=== PATIENT | male | born 1985 | race Caucasian/White ===

== ENCOUNTER 2020-12-30 01:45 | Emergency (ER) | payer OTHER ==
[~2020-12-30] VITALS: Ht 175.3 cm; Wt 96.6 kg
[2020-12-30 01:53] VITALS: BP 160/94
--- NOTE | 2020-12-30 02:10 | NUR ---
PT AMBULATED TO BATHROOM FROM TRIAGE.
--- NOTE | 2020-12-30 02:11 | NUR ---
PT AMBULATES TO LOBBY WITH STEADY GATE.
--- NOTE | 2020-12-30 02:15 | NUR ---
PT AMBULATED TO .
--- NOTE | 2020-12-30 03:05 | NUR ---
CALLED PT, WAS IN RESTROOM STATED HE WOULD COME OUT SOON.
--- NOTE | 2020-12-30 03:07 | NUR ---
PT CALLED IN LOBBY AND OUTSIDE WITH NO ANSWER.
--- NOTE | 2020-12-30 03:15 | NUR ---
CALLED PATIENT BACK, STILL IN RESTROOM. STATED HE IS HAVING A BM.
--- NOTE | 2020-12-30 03:30 | NUR ---
CALLED PT BACK, REMAINED IN RESTROOM SINCE FIRST CALL.
--- NOTE | 2020-12-30 03:39 | NUR ---
CALLED PT BACK, REMAINS IN RR. SECURITY CALLED.
--- NOTE | 2020-12-30 04:03 | NUR ---
PT DOES NOT COME OUT OF RR, STATES HE STILL WANTS TO BE SEEN.
[2020-12-30 04:18] VITALS: BP 160/94
--- NOTE | 2020-12-30 04:18 | NUR ---
PATIENT LEFT WITHOUT BEING SEEN BY DR. ALEMAN. NO FURTHER CARE PROVIDED FOR PATIENT.
== END 2020-12-30 04:18 | disposition left against medical advice (07) ==
LOC: MED 01:45
DX: M79.604 Pain in right leg (principal); Z53.21 Procedure and treatment not carried out due to patient leaving prior to being seen by health care provider; V03.90XA Pedestrian on foot injured in collision with car, pick-up truck or van, unspecified whether traffic or nontraffic accident, initial encounter; Y93.89 Activity, other specified; Y92.89 Other specified places as the place of occurrence of the external cause; Y99.8 Other external cause status

== ENCOUNTER 2021-01-04 01:30 | Emergency (ER) | payer OTHER ==
[~2021-01-04] VITALS: Ht 175.3 cm; Wt 90.7 kg
--- NOTE | 2021-01-04 01:40 | NUR ---
CALLED TO TRIAGE, NO ANSWER. PT IN BATHROOM IN LOBBY AND WON'T COME OUT
--- NOTE | 2021-01-04 01:55 | NUR ---
PT REMAINS IN BATHROOM IN LOBBY AND WILL NOT COME OUT. VERBALLY RESPONDS BUT WILL NOT COME OUT
--- NOTE | 2021-01-04 02:07 | NUR ---
TO TRIAGE WITH C/O RIGHT LEG PAIN
[2021-01-04 02:10] VITALS: BP 146/86
[2021-01-04] MEDS ORDERED: MORPHINE SULFATE 2 MG/ML SYR IVP ONE (02:10)
[2021-01-04] MEDS ORDERED: ONDANSETRON 4 MG/2 ML VIAL IVP ONE ×2 (02:10→04:30)
[2021-01-04] MEDS ORDERED: NACL 0.9% 1,000 ML IV SCH (02:10)
--- NOTE | 2021-01-04 02:19 | NUR ---
pt amb to bed 7
[2021-01-04] MEDS ORDERED: KETOROLAC 30 MG/ML VIAL IVP ONE (02:45)
[2021-01-04] MEDS ORDERED: VANCOMYCIN 1,000 MG in DEXTROSE 5% 250 ML IV ONE (02:45)
[2021-01-04] MEDS ORDERED: VANCOMYCIN 1,000 MG VIAL ONE (02:59)
[2021-01-04 03:01] LABS: BASOPHILS # (AUTO) 0.1 K/uL (0.00-0.22); BASOPHILS % (AUTO) 0.8 % (0.0-2.0); EOSINOPHILS # (AUTO) 0.7 K/uL (0-0.4); EOSINOPHILS % (AUTO) 7.7 % (0.0-4.0); HEMATOCRIT 32.3 % (36-52); HEMOGLOBIN 10.9 g/dL (12.0-18.0); LYMPHOCYTES # (AUTO) 1.9 K/uL (2.0-11.5); LYMPHOCYTES % (AUTO) 22.2 % (20.5-51.1); MEAN CORPUSCULAR HEMOGLOBIN 30 pg (27-31); MEAN CORPUSCULAR HGB CONC 34 g/dL (33-37); MEAN CORPUSCULAR VOLUME 89.2 fL (80-94); MONOCYTES # (AUTO) 0.7 K/uL (0.8-1.0); MONOCYTES % (AUTO) 8.2 % (1.7-9.3); NEUTROPHILS # (AUTO) 5.3 K/uL (1.8-7.7); NEUTROPHILS % (AUTO) 61.1 % (42.2-75.2); PLATELET COUNT (AUTO) 275 K/uL (140-450); RED BLOOD CELL COUNT(AUTO) 3.62 MIL/uL (4.20-6.10); RED CELL DISTRIBUTION WIDTH 12.6 % (11.6-13.7); WHITE BLOOD COUNT (AUTO) 8.7 K/uL (4.8-10.8)
--- NOTE | 2021-01-04 03:03 | NUR ---
US AT BEDSIDE.
--- NOTE | 2021-01-04 03:03 | NUR ---
Rosalina alvarez in ED - 01/04/21 at 0303 by WYATT Ultrasound at bedside.
[2021-01-04 03:19] LABS: ALBUMIN 3.4 g/dL (3.4-5.0); ANION GAP 11.1 (8-16); CARBON DIOXIDE 27.6 mmol/L (21-32); CREATININE 0.9 mg/dL (0.6-1.3); POTASSIUM 3.7 mmol/L (3.5-5.1); TOTAL BILIRUBIN 0.5 mg/dL (0.0-1.0)
--- NOTE | 2021-01-04 03:43 | NUR ---
X-Ray at bedside.
--- NOTE | 2021-01-04 04:17 | NUR ---
Patient appears to be resting comfortably in bed. Vital Signs within normal limits. Respirations even and unlabored. BOTH SIDE RAILS UP AND BED AT LOWEST POSTION.
[2021-01-04] MEDS ORDERED: MORPHINE SULFATE 10 MG/ML VIAL IVP ONE (04:30)
[2021-01-04] MEDS ORDERED: IBUP-2218 PO (04:33)
[2021-01-04] MEDS ORDERED: CEPH-588 PO (04:33)
--- NOTE | 2021-01-04 05:08 | NUR ---
PT ASKED FOR A URINAL, NO C/O AT THIS TIME, PT STATES HE JUST WANTS TO SLEEP.
--- NOTE | 2021-01-04 06:10 | NUR ---
Dr. Dukes examining patient.
[2021-01-04 06:36] VITALS: BP 134/87
--- NOTE | 2021-01-04 06:53 | NUR ---
CALLED ASHOK FOR PT TO BE TAKEN TO [facility] [place] PT THEN CHANGED HIS MIND.
--- NOTE | 2021-01-04 07:25 | NUR ---
NO ANSWER. PT IN BATHROOM IN LOBBY AND WON'T COME OUT
--- NOTE | 2021-01-04 07:59 | NUR ---
[facility] security called.
--- NOTE | 2021-01-04 08:07 | NUR ---
pt came out of bathroom, asked to have a tab called for him. [employer] called eat 25min. bag of food given to pt.
[2021-01-05] MEDS ORDERED: MELO-174 PO (03:31)
== END 2021-01-04 06:35 | disposition home or self-care (01) ==
LOC: MED 01:30
DX: S90.121A Contusion of right lesser toe(s) without damage to nail, initial encounter (principal); X58.XXXA Exposure to other specified factors, initial encounter; Y93.89 Activity, other specified; Y92.89 Other specified places as the place of occurrence of the external cause; Y99.8 Other external cause status
CPT/HCPCS: 36415; 73630; 80053; 83605; 85025; 87040; 93005; 93971; 96365; 96375; 99285; J1885; J3370; Q0092

== ENCOUNTER 2021-01-05 03:03 | Emergency (ER) | payer OTHER ==
[~2021-01-05] VITALS: Ht 172.7 cm; Wt 95.3 kg
[~2021-01-05 03:03] MED LIST: CEPH-588 PO; IBUP-2218 PO
[2021-01-05 03:12] VITALS: BP 150/92
[2021-01-05] MEDS ORDERED: IBUPROFEN 800 MG TAB PO ONE (03:20)
--- NOTE | 2021-01-05 03:20 | NUR ---
patient wheelchair in the lobby
--- NOTE | 2021-01-05 03:28 | NUR ---
patient asked to speak with ERMD for further questions. ERMD made aware
--- NOTE | 2021-01-05 03:28 | NUR ---
medicated patient per ERMD orders.
[2021-01-05] MEDS ORDERED: MELO-174 PO (03:31)
[2021-01-05 03:37] VITALS: BP 150/92
--- NOTE | 2021-01-05 03:37 | NUR ---
Patient discharged with v/s stable. Written and verbal after care instructions given and explained. Patient verbalized understanding. Wheel Chair Assisted with by nurse. All questions addressed prior to discharge. Advised to follow up with PMD. However, patient refused discharged paperwork and refused to sign. ERMD and bellows charger assembler made aware.
== END 2021-01-05 03:37 | disposition home or self-care (01) ==
LOC: MED 03:03
DX: M79.604 Pain in right leg (principal); Z79.899 Other long term (current) drug therapy
CPT/HCPCS: 99282

== ENCOUNTER 2021-05-21 16:37 | Emergency (ER) | payer OTHER ==
[~2021-05-21] VITALS: Ht 172.7 cm; Wt 97.5 kg
[~2021-05-21 16:37] MED LIST changes: +MELO-174 PO
--- NOTE | 2021-05-21 16:39 | NUR ---
ALS BIB to bed 3.
[2021-05-21 16:42] VITALS: BP 146/87
--- NOTE | 2021-05-21 17:30 | NUR ---
DOCTOR BARRERA AT BEDSIDE
[2021-05-21 18:27] VITALS: BP 146/87
== END 2021-05-21 18:27 | disposition home or self-care (01) ==
LOC: MED 16:37
DX: Z72.820 Sleep deprivation (principal); Z79.1 Long term (current) use of non-steroidal anti-inflammatories (NSAID); Z79.2 Long term (current) use of antibiotics
CPT/HCPCS: 99283

== ENCOUNTER 2022-03-07 12:35 | Emergency (ER) | payer MEDICAID, OTHER ==
[~2022-03-07] VITALS: Ht 165.1 cm; Wt 68.0 kg
[2022-03-07 12:37] VITALS: BP 144/102
--- NOTE | 2022-03-07 13:56 | NUR ---
refusing bloodwork at this time
--- NOTE | 2022-03-07 14:17 | NUR ---
PT REFUSING BLOODWORK
--- NOTE | 2022-03-07 14:17 | NUR ---
pt falling over chair to left side. pt repositioned and states he would like to be discharged. made him aware his results have not come back yet, requesting to leave ama
--- NOTE | 2022-03-07 14:18 | NUR ---
AMBULATED TO LOBBY WITH CANE
[2022-03-07] MEDS ORDERED: ACET-10509 PO (16:21)
--- NOTE | 2022-03-07 16:25 | NUR ---
PT REFUSED TO SIGN DC PAPER. PT STATES HE "DONT WANT ANY PAPERS FROM YOU GUYS". PT NOTIFIED OF PRESCRIPTIONS SENT TO PHARMACY. NO IV PLACED ON PATIENT. PT REFUSED DC VITALS. PT IS AMBULATORY AND ALERT UPON DC
== END 2022-03-07 16:25 | disposition home or self-care (01) ==
LOC: MED 12:35
DX: R07.9 Chest pain, unspecified (principal); R51.9 Headache, unspecified; F15.90 Other stimulant use, unspecified, uncomplicated; Z98.890 Other specified postprocedural states
CPT/HCPCS: 70450; 71045; 99284

== ENCOUNTER 2022-12-23 20:39 | Emergency (ER) | payer MEDICAID ==
[~2022-12-23] VITALS: Ht 170.2 cm; Wt 72.6 kg
[2022-12-23 20:39] VITALS: BP 126/82; PULSE 80; RESP 17; TEMP 97.8; O2SAT 100
[~2022-12-23 20:39] MED LIST changes: +ACET-10509 PO
[2022-12-23 22:00] VITALS: BP 126/82; PULSE 80; RESP 17; TEMP 97.8; O2SAT 100
== END 2022-12-23 22:00 | disposition left against medical advice (07) ==
LOC: MED 20:39
DX: R10.84 Generalized abdominal pain (principal); Z53.21 Procedure and treatment not carried out due to patient leaving prior to being seen by health care provider
CPT/HCPCS: 99281

== ENCOUNTER 2023-01-15 18:34 | Emergency (ER) | payer MEDICAID ==
[~2023-01-15] VITALS: Ht 175.3 cm; Wt 68.0 kg
[2023-01-15 18:39] VITALS: BP 132/75; PULSE 69; RESP 16; TEMP 98.2; O2SAT 98
[2023-01-15] MEDS ORDERED: ONDANSETRON 4 MG ODT PO ONE (18:55)
[2023-01-15] MEDS ORDERED: KETOROLAC 30 MG/ML VIAL IM ONE (18:55)
[2023-01-15] MEDS ORDERED: ACETAMINOPHEN 325 MG TAB PO ONE (18:55)
[2023-01-15 20:47] LABS: BASOPHILS % (AUTO) 0.6 % (0.0-2.0); EOSINOPHILS # (AUTO) 0.2 K/uL (0-0.4); EOSINOPHILS % (AUTO) 2.9 % (0.0-4.0); HEMOGLOBIN 11.7 g/dL (12.0-18.0); LYMPHOCYTES # (AUTO) 1.9 K/uL (2.0-11.5); LYMPHOCYTES % (AUTO) 34.8 % (20.5-51.1); MEAN CORPUSCULAR HEMOGLOBIN 29 pg (27-31); MEAN CORPUSCULAR HGB CONC 33 g/dL (33-37); MEAN CORPUSCULAR VOLUME 89.1 fL (80-94); MONOCYTES # (AUTO) 0.4 K/uL (0.8-1.0); MONOCYTES % (AUTO) 6.5 % (1.7-9.3); NEUTROPHILS # (AUTO) 3.1 K/uL (1.8-7.7); NEUTROPHILS % (AUTO) 55.2 % (42.2-75.2); PLATELET COUNT (AUTO) 263 K/uL (140-450); RED BLOOD CELL COUNT(AUTO) 4.04 MIL/uL (4.20-6.10); RED CELL DISTRIBUTION WIDTH 13.1 % (11.6-13.7); WHITE BLOOD COUNT (AUTO) 5.5 K/uL (4.8-10.8)
[2023-01-15 21:10] LABS: BILIRUBIN,URINE NEGATIVE (NEGATIVE); BLOOD, URINE NEGATIVE (NEGATIVE); COLOR,URINE YELLOW (YELLOW); LEUKOCYTE ESTERASE ,URINE NEGATIVE (NEGATIVE); NITRITE, URINE NEGATIVE (NEGATIVE); PROTEIN,URINE 2+ (NEGATIVE); UGLUCOSE NEGATIVE (NEGATIVE); UROBILINOGEN,URINE 0.2 EU/dL (0.2 - 1)
[2023-01-15 21:15] LABS: APPEARANCE,URINE SLIGHTLY CLOUDY (CLEAR)
[2023-01-15 21:17] LABS: BACTERIA,URINE 1+ /HPF (None Seen); MUCUS,URINE None Seen /LPF (None Seen); RBC,URINE 0-5 /HPF (0-5); SQUAMOUS EPITHELIAL CELL,UR 0-3 (FEW) /LPF (0-3 (FEW)); WBC,URINE 0-5 /HPF (0-5)
[2023-01-15 21:34] LABS: BARBITURATE, URINE NEGATIVE ng/ml (NEG <=200)
[2023-01-15 21:35] LABS: AMPHETAMINE, URINE POSITIVE ng/ml (NEG <=1000); BENZODIAZEPINE, URINE NEGATIVE ng/mL (NEG <=200); CANNABINOID, URINE NEGATIVE ng/mL (NEG <=50); COCAINE, URINE NEGATIVE ng/mL (NEG <=300); OPIATE, URINE NEGATIVE ng/mL (NEG <=2000); PHENCYCLIDINE SCREEN,URINE NEGATIVE ng/mL (NEG <=25)
[2023-01-15 21:57] LABS: ANION GAP 12.8 (8-16); CALCIUM 9.5 mg/dL (8.5-10.1); CARBON DIOXIDE 29.6 mmol/L (21-32); CREATININE 0.9 mg/dL (0.6-1.3); POTASSIUM 4.4 mmol/L (3.5-5.1)
[2023-01-15 22:03] LABS: ALBUMIN 3.6 g/dL (3.4-5.0); TOTAL BILIRUBIN 0.2 mg/dL (0.0-1.0)
[2023-01-15 22:22] VITALS: BP 129/67; PULSE 69; RESP 16; TEMP 98.2; O2SAT 98
== END 2023-01-15 22:22 | disposition home or self-care (01) ==
LOC: MED 18:34
DX: K42.9 Umbilical hernia without obstruction or gangrene (principal); F15.10 Other stimulant abuse, uncomplicated; Z79.899 Other long term (current) drug therapy
CPT/HCPCS: 36415; 80053; 80305; 81001; 85025; 87086; 99283; Q0162; J1885

== ENCOUNTER 2023-02-11 15:16 | Emergency (ER) | payer MEDICAID ==
[~2023-02-11] VITALS: Ht 172.7 cm; Wt 72.6 kg
[2023-02-11 15:20] VITALS: BP 146/85; PULSE 89; RESP 18; TEMP 98.1; O2SAT 95
== END 2023-02-11 18:00 | disposition left against medical advice (07) ==
LOC: MED 15:16
DX: R51.9 Headache, unspecified (principal); L53.9 Erythematous condition, unspecified; Z53.21 Procedure and treatment not carried out due to patient leaving prior to being seen by health care provider
CPT/HCPCS: 99281

== ENCOUNTER → 2023-03-29 11:10 | Emergency (ER) | payer MEDICAID ==
[~2023-03-29] VITALS: Ht 157.5 cm; Wt 59.0 kg
[2023-03-29 11:11] VITALS: BP 133/87; PULSE 78; RESP 15; O2SAT 98
== END | disposition left against medical advice (07) ==
LOC: MED 11:10
DX: S90.822A Blister (nonthermal), left foot, initial encounter (principal); Z53.21 Procedure and treatment not carried out due to patient leaving prior to being seen by health care provider; X58.XXXA Exposure to other specified factors, initial encounter; Y93.89 Activity, other specified; Y92.89 Other specified places as the place of occurrence of the external cause; Y99.8 Other external cause status
CPT/HCPCS: 99281

== ENCOUNTER 2023-05-30 01:34 | Emergency (ER) | payer MEDICAID ==
[~2023-05-30] VITALS: Ht 162.6 cm; Wt 63.0 kg
[2023-05-30 01:50] VITALS: BP 136/78; PULSE 74; RESP 18; TEMP 97.9; O2SAT 100
[2023-05-30] MEDS ORDERED: NALOXONE 0.4 MG/ML VIAL IVP ONE (05:15)
== END 2023-05-30 06:00 | disposition home or self-care (01) ==
LOC: MED 01:34
DX: F19.10 Other psychoactive substance abuse, uncomplicated (principal); Z59.00 Homelessness unspecified; Z79.899 Other long term (current) drug therapy
CPT/HCPCS: 99283

== ENCOUNTER 2023-08-02 04:50 | Emergency (ER) | payer MEDICAID | END 2023-08-02 04:52 | disposition left against medical advice (07) | LOC: MED 04:50 | DX: R10.9 Unspecified abdominal pain (principal); Z53.21 Procedure and treatment not carried out due to patient leaving prior to being seen by health care provider ==

== ENCOUNTER 2023-11-11 22:07 | Emergency (ER) | payer MEDICAID ==
[~2023-11-11] VITALS: Ht 170.2 cm; Wt 81.6 kg
[~2023-11-11 22:07] MED LIST changes: -ACET-10509 PO; +ACET500T99 PO
[2023-11-11 22:16] VITALS: BP 132/91; PULSE 63; RESP 18; TEMP 97.7; O2SAT 100
[2023-11-11 23:35] VITALS: BP 132/91; PULSE 63; RESP 18; TEMP 97.7; O2SAT 100
[2023-11-12] MEDS ORDERED: AMOX-1230 PO (01:35)
[2023-11-12] MEDS: HYDROcodone/APAP 5/325 MG 1 TAB TAB PO ONE (01:37)
== END 2023-11-12 01:40 | disposition home or self-care (01) ==
LOC: MED 22:07
DX: K04.7 Periapical abscess without sinus (principal); Z79.899 Other long term (current) drug therapy
CPT/HCPCS: 99283